=== PATIENT | female | born 1930 | race Caucasian/White ===

== ENCOUNTER → 2016-12-30 | Outpatient (CLI) | payer MEDICARE ==
[~2016-12-30] MED LIST: ACET325T38 PO; AMLO5TAB2 PO; ASPI325T32 PO; ATEN50TA PO; ATOR20TA66 PO; AZIT500T PO; BETA1TAB15 PO; CALC-147 PO; CALC3.7S NS; CALC625T29 PO; CEFD300C3 PO; CLCX200C PO; DOCU-143 PO; FEN12TD TD; HYDR-3730 PO; HYDR-3812 PO; HYDR25TA4 PO; HYOS0.1283 SL; LRT10T PO; METH500T5 PO; MULT-1029 PO; MULT-963 PO; OMEP20TA2 PO; OXB5T PO; PANT40TA3 PO; SERT50TA2 PO; SMV20T PO; SUCR1TAB36 PO; TRM50T PO; VITA400T9 PO
--- OUTSIDE RECORDS SUMMARY | 2016-12-30 11:40 | XMS REPORT | Continuity of Care Document ---
Author Author [facility] Organization [facility] Address Unknown Phone Unavailable Care Team Providers Care International Account Representative Name Role Phone EMILIANO JEONG DO PCP Insurance Providers Payer Name Policy Number Subscriber Name Relationship [employer] [id number] Nandini Gibson 18 Self / Same As Patient Blue Cross [facility] Supp [id number] Nandini Gibson 18 Self / Same As Patient Advance Directives Directive Response Recorded Date/Time Advance Directives No 10/28/16 1:42pm Resuscitation Status Full Code 10/28/16 1:42pm Problems Active Problems Medical Problem Onset Date Status Cholelithiasis Unknown Acute Urinary tract infection Unknown Acute Medications Current Home Medications Medication Dose Units Route Directions Days/Qty Instructions Start Date Loratadine 10 Mg 10 Mg Oral Daily 03/16/13 Atenolol 50 Mg 50 Mg Oral Daily 03/16/13 Oxybutynin Chloride 5 Mg 5 Mg Oral Twice A Day 03/16/13 Hyoscyamine Sulfate 0.125 Mg 1-2 Tab Sublingual Every 4HRS for Abdominal Pain 15 10/22/16 Cefdinir (Omnicef) 300 Mg 300 Mg Oral Twice A Day 10/28/16 Multivit-Min/Fa/Lycopene/Lut 1 Each 1 Each Oral Twice A Day 10/29/16 Calcium Citrate/Vitamin D3 1 Each 1 Each Oral Twice A Day 10/29/16 Docusate Sodium 100 Mg 100 Mg Oral Daily as needed for Constipation 10/29/16 Calcium Polycarbophil 625 Mg 625 Mg Oral Twice A Day 10/29/16 Sucralfate 1 Gm 1 Gm Oral 4X Day Before Meals/At Bedtime 10/29/16 Hydrocodone/Acetaminophen 1 Each 1 Each Oral Every 6 Hours as needed for Pain 10/29/16 Acetaminophen 325 Mg 650 Mg Oral Every 4HRS as needed for Mild Pain/Fever take 2 (325mg) tabs 10/29/16 Fentanyl 12 Mcg 12 Mcg Transderm Every 72 Hours 10/29/16 Hydrochlorothiazide 25 Mg 25 Mg Oral Daily 10/29/16 Pantoprazole Sodium 40 Mg 40 Mg Oral Twice A Day 10/29/16 Sertraline Hcl 50 Mg 50 Mg Oral Daily 10/29/16 Vit A/Vit C/Vit E/Zinc/Copper 1 Each 1 Each Oral Twice A Day Vitamin E Mixed 400 Unit 400 Unit Oral Twice A Day 10/29/16 Calcitonin,[place],Synthetic 3.7 Ml 1 Spr Nasal Daily alternate nostrils every other day 10/29/16 Amlodipine Besylate 5 Mg 5 Mg Oral Daily 10/29/16 Atorvastatin Calcium 20 Mg 20 Mg Oral Daily 10/29/16 Past Home Medications Medication Directions Ordered Status Simvastatin 20 Mg Tab, 20 Mg Oral Daily 03/16/13 Discontinued Tramadol Hcl 50 Mg Tab, 50 Mg Oral Twice A Day 03/16/13 Discontinued Aspirin 325 Mg Tablet.dr, 325 Mg Oral 03/16/13 Discontinued Omeprazole 20 Mg Tablet.dr, 20 Mg Oral 03/16/13 Discontinued Celecoxib 200 Mg Capsule, 1 Each Oral Daily 03/16/13 Discontinued Methylcellulose 500 Mg Tablet, 500 Mg Oral 03/16/13 Discontinued Multivitamin 1 Each Tablet, 1 Each Oral 03/16/13 Discontinued Cefdinir (Omnicef) 300 Mg Capsule, 300 Mg Oral Twice A Day for For Infection 10/22/16 Discontinued Azithromycin 500 Mg Tablet, 500 Mg Oral Daily 10/22/16 Discontinued Social History Social History Problem Response Recorded Date/Time Alcohol Use Denies Use 10/28/2016 1:42pm Recreational Drug Use No 10/28/2016 1:42pm Recent Foreign Travel No 10/28/2016 1:36pm Recent Infectious Disease Exposure No 10/28/2016 1:36pm Smoking Status Never a Smoker 10/28/2016 1:42pm Recent Hopitalizations Yes 10/28/2016 1:42pm Query Response Start Date Stop Date Smoking Status Never a Smoker Hospital Discharge Instructions No hospital discharge instructions. Plan of Care Discharge Date 10/28/16 2:15pm Prescriptions See Medication Section Functional Status No functional status results. Allergies, Adverse Reactions, Alerts No known allergies. Immunizations No immunization records. Vital Signs Acute Vital Signs Vital Response Date/Time Temperature (Fahrenheit) 96.8 degrees F (97.6 - 99.5) 10/22/2016 9:42pm Temperature (Calculated Celsius) 36.63214 degrees C (36.4 - 37.5) 10/22/2016 9:42pm Temperature Source Temporal 10/22/2016 9:42pm Pulse Rate (adult) 90 bpm (60 - 90) 10/28/2016 1:41pm Respiratory Rate 16 bpm (12 - 24) 10/22/2016 9:42pm O2 Sat by Pulse Oximetry 97 % (88 - 100) 10/22/2016 9:42pm Blood Pressure 111/67 mm Hg 10/28/2016 1:41pm Blood Pressure Mean 82 mm Hg 10/28/2016 1:41pm Pain Numeric Pain Scale 3 10/28/2016 1:41pm Height (Feet) 5 feet 10/28/2016 1:37pm Height (Inches) 1.00 inches 10/28/2016 1:37pm Height (Calculated Centimeters) 154.013885 cm 10/28/2016 1:37pm Weight (Pounds) 124 pounds 10/28/2016 1:37pm Weight (Ounces) 0.0 oz 10/28/2016 1:37pm Weight (Calculated Grams) 49687.45 gm 10/28/2016 1:37pm Weight (Calculated Kilograms) 56.849808 kilograms 10/28/2016 1:37pm Calculated BMI 23.4 10/28/2016 1:37pm Capillary Refill Capillary Refill Less Than 3 Seconds 10/22/2016 5:50pm Results Laboratory Results Test Name Result Units Flags Reference Collection Date/Time Result Date/ Time Comments White Blood Count 9.8 10^3/uL 4.3-11.0 10/22/2016 6:30pm 10/22/2016 6: 45pm Red Blood Count 4.17 10^6/uL L 4.35-5.85 10/22/2016 6:30pm 10/22/2016 6: 45pm Hemoglobin 12.5 G/DL 11.5-16.0 10/22/2016 6:30pm 10/22/2016 6:45pm Hematocrit 38 % 35-52 10/22/2016 6:30pm 10/22/2016 6:45pm Mean Corpuscular Volume 90 FL 80-99 10/22/2016 6:30pm 10/22/2016 6: 45pm Mean Corpuscular Hemoglobin 30 PG 25-34 10/22/2016 6:30pm 10/22/2016 6: 45pm Mean Corpuscular Hemoglobin Concent 33 G/DL 32-36 10/22/2016 6:30pm 6:45pm Red Cell Distribution Width 13.9 % 10.0-14.5 10/22/2016 6:30pm 2015 6:45pm Platelet Count 314 10^3/uL 130-400 10/22/2016 6:30pm 10/22/2016 6:45pm Mean Platelet Volume 9.6 FL 7.4-10.4 10/22/2016 6:30pm 10/22/2016 6: 45pm Neutrophils (%) (Auto) 64 % 42-75 10/22/2016 6:30pm 10/22/2016 6:45pm Lymphocytes (%) (Auto) 24 % 12-44 10/22/2016 6:30pm 10/22/2016 6:45pm Monocytes (%) (Auto) 9 % 0-12 10/22/2016 6:30pm 10/22/2016 6:45pm Eosinophils (%) (Auto) 3 % 0-10 10/22/2016 6:30pm 10/22/2016 6:45pm Basophils (%) (Auto) 0 % 0-10 10/22/2016 6:30pm 10/22/2016 6:45pm Neutrophils # (Auto) 6.3 X 10^3 1.8-7.8 10/22/2016 6:30pm 10/22/2016 6: 45pm Lymphocytes # (Auto) 2.3 X 10^3 1.0-4.0 10/22/2016 6:30pm 10/22/2016 6: 45pm Monocytes # (Auto) 0.9 X 10^3 0.0-1.0 10/22/2016 6:30pm 10/22/2016 6: 45pm Eosinophils # (Auto) 0.3 10^3/uL 0.0-0.3 10/22/2016 6:30pm 10/22/2016 6 :45pm Basophils # (Auto) 0.0 10^3/uL 0.0-0.1 10/22/2016 6:30pm 10/22/2016 6: 45pm Prothrombin Time 15.4 SEC H 12.2-14.7 10/22/2016 6:30pm 10/22/2016 6: 55pm INR Comment 1.3 0.8-1.4 10/22/2016 6:30pm 10/22/2016 6:55pm INTERPRETIVE DATA SUGGESTED THERAPEUTIC RANGE FOR INR'S: VENOUS THROMBOSIS, PULMONARY EMBOLISM, OR PREVENTION OF SYSTEMIC EMBOLISM (EG. IN ATRIAL FIBRILLATION): 2.0 - 3.0 MECHANICAL PROSTHETIC HEART VALVES: 2.5 - 3.5* *NOTE: INR'S UP TO 4.5 MAY BE NECESSARY IN SELECTED GROUPS OF HIGH RISK PATIENTS. [employer] CONSENSUS CONFERENCE ON ANTITHROMBOTIC THERAPY (2000). Activated Partial Thromboplast Time 29 SEC 24-35 10/22/2016 6:30pm 6:55pm Urine Color YELLOW 10/22/2016 8:30pm 10/22/2016 8:52pm Urine Clarity CLEAR 10/22/2016 8:30pm 10/22/2016 8:52pm Urine pH 6 5-9 10/22/2016 8:30pm 10/22/2016 8:52pm Urine Specific [place] 1.010 * 1.016-1.022 10/22/2016 8:30pm 2015 8:52pm Urine Protein 2+ * NEGATIVE 10/22/2016 8:30pm 10/22/2016 8:52pm Urine Glucose (UA) NEGATIVE NEGATIVE 10/22/2016 8:30pm 10/22/2016 8: 52pm Urine RBC (Auto) 2+ * NEGATIVE 10/22/2016 8:30pm 10/22/2016 8:52pm Urine Ketones NEGATIVE NEGATIVE 10/22/2016 8:30pm 10/22/2016 8:52pm Urine Nitrite POSITIVE * NEGATIVE 10/22/2016 8:30pm 10/22/2016 8:52pm Urine Bilirubin NEGATIVE NEGATIVE 10/22/2016 8:30pm 10/22/2016 8: 52pm Urine Urobilinogen NORMAL MG/DL NORMAL 10/22/2016 8:30pm 10/22/2016 8: 52pm Urine Leukocyte Esterase 1+ * NEGATIVE 10/22/2016 8:30pm 10/22/2016 8: 52pm Urine RBC 2-5 /HPF * 10/22/2016 8:30pm 10/22/2016 8:52pm Urine WBC 5-10 /HPF * 10/22/2016 8:30pm 10/22/2016 8:52pm Urine Bacteria LARGE /HPF * 10/22/2016 8:30pm 10/22/2016 8:52pm Urine Squamous Epithelial Cells 2-5 /HPF 10/22/2016 8:30pm 2015 8:52pm Urine Crystals NONE /LPF 10/22/2016 8:30pm 10/22/2016 8:52pm Urine Casts NONE /LPF 10/22/2016 8:30pm 10/22/2016 8:52pm Urine Mucus NONE /LPF 10/22/2016 8:30pm 10/22/2016 8:52pm Urine Culture Indicated YES 10/22/2016 8:30pm 10/22/2016 8:52pm Sodium Level 132 MMOL/L L 135-145 10/22/2016 6:30pm 10/22/2016 7:05pm Potassium Level 3.4 MMOL/L L 3.6-5.0 10/22/2016 6:30pm 10/22/2016 7:05pm Chloride Level 89 MMOL/L L 98-107 10/22/2016 6:30pm 10/22/2016 7:05pm Carbon Dioxide Level 29 MMOL/L 21-32 10/22/2016 6:30pm 10/22/2016 7: 05pm Anion Gap 14 MMOL/L 5-14 10/22/2016 6:30pm 10/22/2016 7:05pm Blood Urea Nitrogen 46 MG/DL H 7-18 10/22/2016 6:30pm 10/22/2016 7:05pm Creatinine 1.84 MG/DL H 0.60-1.30 10/22/2016 6:30pm 10/22/2016 7:05pm BUN/Creatinine Ratio 10/22/2016 6:30pm 10/22/2016 7:05pm Estimat Glomerular Filtration Rate 10/22/2016 6:30pm 10/22/2016 7:05pm GFR INTERPRETIVE DATA UNITS FOR ESTIMATED GFR (eGFR): mL/min/1.73 M2 REFERENCE RANGE FOR ESTIMATED GFR (eGFR) eGFR NORMAL eGFR >60 MODERATELY DECREASED eGFR 30-59 SEVERLY DECREASED eGFR 15-29 KIDNEY FAILURE <15 (OR DIALYSIS) Glucose Level 108 MG/DL H 70-105 10/22/2016 6:30pm 10/22/2016 7:05pm Calcium Level 10.2 MG/DL H 8.5-10.1 10/22/2016 6:30pm 10/22/2016 7:05pm Total Bilirubin 0.4 MG/DL 0.1-1.0 10/22/2016 6:30pm 10/22/2016 7:05pm Alkaline Phosphatase 79 U/L 40-136 10/22/2016 6:30pm 10/22/2016 7:05pm Aspartate Amino Transf (AST/SGOT) 36 U/L H 5-34 10/22/2016 6:30pm 2015 7:05pm Alanine Aminotransferase (ALT/SGPT) 32 U/L 0-55 10/22/2016 6:30pm 10/22 7:05pm Total Protein 7.7 G/DL 6.4-8.2 10/22/2016 6:30pm 10/22/2016 7:05pm Albumin 3.5 G/DL 3.2-4.5 10/22/2016 6:30pm 10/22/2016 7:05pm Amylase Level 56 U/L 25-125 10/22/2016 6:30pm 10/22/2016 7:05pm Lipase 43 U/L 8-78 10/22/2016 6:30pm 10/22/2016 7:05pm Microbiology Results Procedure Source Result Collection Date/Time Result Date/Time Urine Culture Urine, Clean Catch ESCHERICHIA COLI 10/22/2016 8:30pm 2015 12:36pm Procedures Procedure Status Date Provider(s) Color Doppler echocardiography Active 10/25/16 ANNA QUIROGA MD Encounters Encounter Location Arrival/Admit Date Discharge/Depart Date Attending Provider Departed Clinic [facility] 10/28/16 1:28pm 10/28/16 2: 15pm JOVITA PINON MD Registered Clinic [facility] 10/25/16 10:18am ANNA QUIROGA MD Departed Emergency Room [facility] 10/22/16 5:23pm 10/22 9:42pm MEEK DE LOS SANTOS DO
[2016-12-30 11:57] LABS: BASOPHILS % (AUTO) 0 % (0-10); EOSINOPHILS # (AUTO) 0.2 10^3/uL (0.0-0.3); EOSINOPHILS % (AUTO) 2 % (0-10); LYMPHOCYTES # (AUTO) 2.5 X 10^3 (1.0-4.0); LYMPHOCYTES % (AUTO) 32 % (12-44); MEAN CORPUSCULAR HEMOGLOBIN 30 PG (25-34); MEAN CORPUSCULAR HGB CONC 33 G/DL (32-36); MEAN CORPUSCULAR VOLUME 93 FL (80-99); MEAN PLATELET VOLUME 9.3 FL (7.4-10.4); MONOCYTES # (AUTO) 0.8 X 10^3 (0.0-1.0); MONOCYTES % (AUTO) 11 % (0-12); NEUTROPHILS # (AUTO) 4.1 X 10^3 (1.8-7.8); NEUTROPHILS % (AUTO) 54 % (42-75); PLATELET COUNT 235 10^3/uL (130-400); RED BLOOD COUNT 4.06 10^6/uL (4.35-5.85); WHITE BLOOD COUNT 7.7 10^3/uL (4.3-11.0)
[2016-12-30 12:20] LABS: CALCIUM 9.3 MG/DL (8.5-10.1); CREATININE SERUM 2.07 MG/DL (0.60-1.30); POTASSIUM 3.6 MMOL/L (3.6-5.0); hs C REACTIVE PROTEIN 0.06 MG/DL (0.00-0.50)
[2016-12-30 13:04] LABS: ERYTHROCYTE SEDIMENTATION RATE 45 MM/HR (0-30)
--- NOTE | 2016-12-30 14:01 | Diagnostic Imaging Report ---
PROCEDURE: CT chest without contrast. TECHNIQUE: Multiple contiguous axial images were obtained through the chest without the use of intravenous contrast. INDICATION: Shortness of breath. FINDINGS: There is groundglass subsegmental opacification in the anterior aspect of the right lung apex. There is patchy consolidation in the right lower lobe near the posterior costophrenic angle with nodular density measuring 1.3 cm, axial image 44. In this region and based on chest x-ray of 10/22/2016, there has been a large area of consolidation, and this could potentially be related to a resolving infection with some remaining atelectasis or scarring component as well. Another followup in three months is recommended to ensure stability or resolution. The left lung demonstrates minimal groundglass opacities, and foci of interstitial thickening in the lower lung may relate to scarring. The mediastinum demonstrates no mass. No significantly enlarged lymph node. No axillary lymphadenopathy. The juni demonstrate no significant soft tissue mass. The thoracic aorta is normal in caliber. There is a moderate-sized hiatal hernia. Osseous structures demonstrate kyphoplasty changes in the mid thoracic spine. IMPRESSION: 1. Improving consolidation in the right lower lobe with remaining nodular density measuring 1.3 cm. This may relate to residual pneumonitis, atelectasis, or scarring. A neoplasm is not entirely excluded. This can be further evaluated with PET/CT and followup CT chest in three months. 2. Moderate-sized hiatal hernia. Dictated by: Dictated on workstation # [id number]
== END ==
LOC: RAD 11:36
PROVIDERS: ATTEND Internal Medicine Critical Care Medicine
DX: J18.9 Pneumonia, unspecified organism (principal); R06.02 Shortness of breath
CPT/HCPCS: 36415; 71250; 80048; 83880; 85025; 85652; 86038; 86141; 86430

== ENCOUNTER → 2017-03-04 | Outpatient (CLI) | payer MEDICARE ==
--- NOTE | 2017-03-04 10:07 | Diagnostic Imaging Report ---
PROCEDURE: CT chest without contrast. TECHNIQUE: Multiple contiguous axial images were obtained through the chest without the use of intravenous contrast. INDICATION: Followup right lower lobe nodule. COMPARISON: 12/30/2016. FINDINGS: The previously seen right lower lobe patchy consolidation and 1.3 cm nodule is now significantly improved with resolution of the previously seen nodular component and remaining minimal atelectasis or scarring. Left basilar scarring is also seen. There is also mild groundglass opacity in the anterior aspect of the right lung apex without change is also probably related to mild interstitial scarring. There is some no significant consolidation, mass or nodule developed from the prior exam. There is a moderate-sized hiatal hernia. The heart size is normal. No pericardial or pleural effusion. The mediastinum demonstrates no significantly enlarged lymph node or mass. The thoracic aorta is normal in caliber. No axillary lymphadenopathy is seen. The sections in the upper abdomen demonstrate cholecystectomy clips. The osseous structures demonstrate prior kyphoplasty change in the mid thoracic spine. IMPRESSION: 1. Scattered pulmonary scarring mostly in the lung bases. The previously seen 1.3 cm right lung base nodule has resolved. 2. Moderate hiatal hernia. Dictated by: Dictated on workstation # [id number]
== END ==
LOC: RAD 09:17
PROVIDERS: ATTEND Internal Medicine Critical Care Medicine
DX: J18.9 Pneumonia, unspecified organism (principal); R06.02 Shortness of breath
CPT/HCPCS: 71250